=== PATIENT | male | born 1965 | race Caucasian/White ===

== ENCOUNTER 2024-03-09 14:48 | Emergency (ER) | payer SELFPAY ==
[2024-03-09 15:10] VITALS: BP 136/79
--- NOTE | 2024-03-09 17:21 | ED.SKININJ ---
HPI-Injury
General
Chief Complaint: Head Injury
Source: patient
Exam Limitations: none
Time Seen by Provider: 03/09/24 17:15
Nursing documentation reviewed up to this point in time: agreed with
History of Present Illness-Injury
Is this injury a work related problem?: No
Is pt an associate of [facility]/[place]?: No
Initial Injury comments:
Patient states he fell while walking back to his room. Hit right side of face/head on floor. No LOC. Small superficial abrasion noted right cheek. Swelling and bruising right orbit. Injury occurred just [employer]. Brought to ED via EMS for eval.
Past History
Past History
ED Past Medical History: HTN, IDDM and Psychiatric (dementia)
Review of Systems
Review of Systems
Allergies reviewed?: Yes
All Other Systems: ROS reviewed and negative except as documented in HPI and ROS
Constitutional: Reports no symptoms
EENT: Reports no symptoms
Respiratory: Reports no symptoms
Cardiac: Reports no symptoms
ABD/GI: Reports no symptoms
: Reports no symptoms
Musculoskeletal: Reports other (bruising and swelling right orbit.)
Skin: Reports other (superficial abrasion right cheek)
Neurological: Reports no symptoms
Psychiatric: Reports no symptoms
Course
Orders/Labs/Results
Orders:
Orders
03/09/24 17:20
CT Head W/o Iv Contrast Urgent
Comment:
Reason For Exam: fall
Orbits wo Contrast CT [CT Orbits W/o Iv Contrast] Urgent
Comment:
Reason For Exam: attn right orbit.
Vital Signs
Initial and Last Documented VS:
Initial Vital Signs
Temp Pulse Resp BP Pulse Ox
97.9 F 74 16 136/79 100
03/09/24 15:10 03/09/24 15:10 03/09/24 15:10 03/09/24 15:10 03/09/24 15:10
Last Documented Vital Signs
Temp Pulse Resp BP Pulse Ox
97.9 F 74 16 136/79 100
03/09/24 15:10 03/09/24 15:10 03/09/24 15:10 03/09/24 15:10 03/09/24 15:10
ED Attending Note
-
Portions of this chart may have been created with voice recognition software.� Occasional wrong word or��sound alike� substitutions may have occurred due to the inherent limitations of voice recognition software.
Discharge Plan
Departure
Prescriptions:
No Action
carvedilol 25 mg Tablet
25 mg PO BID
acetaminophen [Tylenol] 325 mg Tablet
650 mg PO Q6HPRN PRN (Reason: mild pain/temp>101)
polyethylene glycol 3350 [Miralax] 17 gram Powder In Packet
17 g PO DAILY PRN (Reason: constipation)
sennosides-docusate sodium [Senna-S] 8.6-50 mg Tablet
1 tab PO BID
dextrose [Glucose Gel] 40 % Gel
15 g PO Q15M PRN (Reason: BS<60)
Rx Instructions:
give q15 minutes x 3
aspirin 81 mg Tablet,Delayed Release (Dr/Ec)
81 mg PO DAILY
bisacodyl [Dulcolax (bisacodyl)] 10 mg Suppository
10 mg MN DAILY PRN (Reason: constipation)
Fleet Enema 19-7 gram/118 mL Enema
118 ml MN DAILYPRN PRN (Reason: if suppository ineffective)
sorbitol 70 % Solution
30 ml PO DAILYPRN PRN (Reason: no BM in 3 days)
glucagon HCl [Glucagon (HCl) Emergency Kit] 1 mg Recon Soln
1 mg IM PRN PRN (Reason: BS<60 unable swallow glucose gel)
nifedipine 60 mg Tablet Extended Release
60 mg PO BID 30 Days Qty: 60 0RF
donepezil 5 mg Tablet
5 mg PO HS
lisinopril 20 mg Tablet
20 mg PO DAILY
insulin glargine [Lantus Solostar U-100 Insulin] 100 unit/mL (3 mL) Insulin Pen
10 unit SC HS
Rx Instructions:
hold for blood sugar <100
Interventions
Interventions:
*Risk Screen - Suicide Last Done: 03/09/24 15:07
Discharge Date and Time
Print Language: [place]ET[place]
[2024-03-09] MEDS: AUGMENTIN 875 MG/125 MG 1 TABLET PO (19:46)
[2024-03-09 22:03] VITALS: BP 144/82
== END 2024-03-09 22:04 | disposition home or self-care (01) ==
LOC: EMR 14:48
PROVIDERS: EMERGENCY PHYSICIAN Student in an Organized Health Care Education/Training Program; FAMILY PHYSICIAN Internal Medicine
DX: S02.31XA Fracture of orbital floor, right side, initial encounter for closed fracture (principal); S02.841A Fracture of lateral orbital wall, right side, initial encounter for closed fracture; S09.90XA Unspecified injury of head, initial encounter; W19.XXXA Unspecified fall, initial encounter
CPT/HCPCS: 99284; 70450; 70480